=== PATIENT | male | born 1970 | race Caucasian/White ===

== ENCOUNTER 2017-09-16 09:07 | Observation (INO) ==
[2017-09-16] MEDS ORDERED: Aspirin 81 MG TAB.CHEW PO ONE (09:12)
--- NOTE | 2017-09-16 09:23 | Emergency Department Note ---
Disposition Clinical Impression: Chest pain Qualifiers: Chest pain type: unspecified Qualified Code(s): R07.9 - Chest pain, unspecified Disposition: Admitted As Inpatient Condition: Fair Referrals: NONE,PCP [Non-Partnered Physician] - Forms: ED Satisfaction Letter Time of Disposition: 11:57 Chest Pain HPI - General Chief Complaint: ED Chest Pain Stated Complaint: chest pain Time Seen by Provider: 09/16/17 09:11 Source: patient Mode of arrival: ambulatory Limitations: no limitations Vital Signs Reviewed: Yes Nursing Notes Reviewed: Yes - History of Present Illness HPI Narrative: 46-year-old who developed chest pain into his left shoulder at about 1 AM. Lasted for a couple hours since resolved. Patient does not know family history as he does not know his mother and father, does have a history of hypertension and probable high cholesterol. Nonsmoker no diabetes. Pt complaint: chest pain Onset (ago): hour(s) Duration: constant, now resolved Onset: during rest Pain Location: substernal, left chest Severity: moderate Severity scale (1-10): 1 Quality: tightness, aching Pain Radiation: LUE Improves with: rest Worsens with: nothing Associated symptoms: Reports: nausea - Related Data Home Medications Medication Instructions Recorded Confirmed Lisinopril [Zestril] 20 mg PO DAILY 09/16/17 09/16/17 Metoprolol Succinate [Toprol Xl] 25 - 50 mg PO DAILY 09/16/17 09/16/17 Allergies Allergy/AdvReac Type Severity Reaction Status Date / Time No Known Allergies Allergy Verified 09/16/17 12:29 All systems ED: reviewed and negative except as stated. Constitutional: Denies: fever, chills, weakness, weight change Eyes: Denies: eye pain, eye discharge, vision change ENT ED: Denies: ear pain, throat pain, dental pain, hearing loss, epistaxis, congestion, dysphagia Cardiovascular: Reports: chest pain. Denies: palpitations, dyspnea on exertion , edema, syncope Respiratory: Denies: cough, dyspnea, wheezes, hemoptysis, stridor Gastrointestinal: Denies: abdominal pain, nausea, vomiting, diarrhea, constipation, hematemesis, melena, hematochezia Genitourinary: Denies: urgency, dysuria, frequency, hematuria Musculoskeletal: Denies: back pain, neck pain, arthralgia, myalgia Integumentary: Denies: rash, abrasion, lesions Neurological: Denies: headache, weakness, numbness, paresthesias, confusion, abnormal gait, vertigo Psychiatric: Denies: anxiety, depression, suicidal thoughts, homicidal thoughts , auditory hallucinations, visual hallucinations Endocrine: Denies: fatigue Hematological/Lymphatic: Denies: easy bleeding, easy bruising Allergic/Immunologic: Denies: facial swelling, urticaria Chest Pain PMH - Past Medical History Medical history: Reports: hypertension Psychiatric history: Reports: no psych history - Social History Smoking Status: Never smoker Alcohol use: Reports: occasionally Drug use: Reports: none Physical Exam - General Limitations: no limitations General appearance: alert, in no apparent distress - Head Head exam: atraumatic, normocephalic, normal inspection - Eye Eye exam: Present: normal appearance, PERRL, EOMI - ENT ENT exam: normal exam, normal oropharynx, mucous membranes moist - Neck Neck exam: Present: normal inspection, full ROM, trachea midline - Chest Chest inspection: Present: normal inspection, symmetric chest wall rise - Respiratory Respiratory exam: Present: normal lung sounds bilaterally - Cardiovascular Cardiovascular exam: Present: regular rate, normal rhythm, normal heart sounds - Abdominal Exam Abdominal exam: Present: soft, Non-Tender. Absent: tenderness, distention, guarding, rebound, rigidity - Extremities Exam Extremities exam: Present: normal inspection, full ROM. Absent: tenderness, pedal edema - Expanded Lower Extremity Exam Neurovascular/Tendon exam: Absent: motor deficit, sensory deficit, tendon deficit Gait: observed and normal - Back Exam Back exam: Present: normal inspection, full ROM. Absent: tenderness - Neurological Exam Neurological exam: Present: alert, oriented X3 - Psychiatric Psychiatric exam: Present: normal affect, normal mood - Skin Skin exam: Present: warm, dry, intact, normal color Course - Reevaluation(s) Reevaluation #1: 46-year-old with risk factors comes in complaining of chest pain with no previous cardiac workup. Patient will be admitted for further evaluation and treatment. Time: 11:57 - Consultations Consultation #1: Discussed with Dr. Garrison, admit Time: 13:29 Vital Signs Temperature 98.3 F 09/16/17 09:09 Pulse Rate 91 09/16/17 09:09 Respiratory Rate 16 09/16/17 09:09 Blood Pressure 145/99 09/16/17 09:09 O2 Sat by Pulse Oximetry 97 09/16/17 09:09 Temperature 98.3 F 09/16/17 09:16 Pulse Rate 114 09/16/17 12:48 Respiratory Rate 16 09/16/17 12:48 Blood Pressure 139/98 09/16/17 12:48 O2 Sat by Pulse Oximetry 96 09/16/17 12:48 Oxygen Delivery Oxygen Delivery Room Air Chest Pain - Lab Data Lab results reviewed: Yes I reviewed the patient's lab results. Result diagrams: 09/16/17 09:30 09/16/17 09:30 Lab Results 09/16/17 09/16/17 09/16/17 Range/Units 09:30 09:30 09:30 WBC 7.4 (4.3-11.1) K/mcL RBC 5.46 (4.19-5.50) M/mcL Hgb 17.3 H (12.9-16.9) g/dL Hct 49.3 (37.5-50.1) % MCV 90.3 (83.0-100.0) fL MCH 31.7 (28.0-33.3) pg MCHC 35.1 (31.6-35.5) g/dL RDW 12.0 (11.5-14.5) % Plt Count 182 (140-400) K/mcL MPV 9.8 (9.4-12.4) fL Immature Gran % 0.5 (0-4) % Seg Neutrophils % 60.6 % Lymphocytes % 21.8 % Monocytes % 15.1 % Eosinophils % 1.2 % Basophils % 0.8 % Neutrophils # 4.5 (1.6-8.9) K/mcL Lymphocytes # 1.6 (0.6-4.6) K/mcL Monocytes # 1.1 (0.0-1.3) K/mcL Eosinophils # 0.1 (0.0-0.6) K/mcL Basophils # 0.1 (0.0-0.2) K/mcL PT 11.0 (9.4-12.1) Seconds INR 1.0 APTT 33.1 (26.0-36.0) Seconds Sodium 137 (136-145) mEq/L Potassium 4.1 (3.5-5.1) mEq/L Chloride 105 (98-107) mEq/L Carbon Dioxide 24 (23-29) mEq/L BUN 14 (6-20) mg/dL Creatinine 1.06 (0.70-1.30) mg/dL Est GFR ( Amer) > 60 (> 60) Est GFR (Non-Af Amer) > 60 (> 60) BUN/Creatinine Ratio 13 (6-26) Glucose 120 H (70-105) mg/dL Calculated Osmolality 286 (280-300) Calcium 9.7 (8.6-10.3) mg/dL ALT 79 H (7-52) Units/L Troponin I < 0.03 (< 0.04) ng/mL Triglycerides 73 (< 150) mg/dL Cholesterol 260 H (< 200) mg/dL LDL Cholesterol, Calc 184 H (0-99) mg/dL VLDL Cholesterol, Calc 15 (< 31) mg/dL HDL Cholesterol 61 H (40-59) mg/dL Cholesterol/HDL Ratio 4.3 (0-4.9) - Radiology Data Radiology results reviewed: Yes I reviewed the patient's radiology results. Chest X-Ray 09/16/17 09:12 IMPRESSION: Negative chest. D/ / Regina Escalante MD / Regina Escalante MD Interpreting Provider: Regina Escalante MD - EKG Data EKG attestation: Yes I reviewed and interpreted this EKG. EKG shows normal: sinus rhythm Rate: normal Rhythm: NSR Lena/QRS: normal Interpretation: no acute changes Heart Score - Score History: Moderately Suspicious EKG: Normal Age: 45-65 Risk Factors: 1-2 risk factors Troponin: Less than normal limit HEART Score Total: 3
[2017-09-16 09:49] LABS: Basophils # 0.1 K/mcL (0.0-0.2); Basophils % 0.8 %; Eosinophils # 0.1 K/mcL (0.0-0.6); Eosinophils % 1.2 %; Hematocrit 49.3 % (37.5-50.1); Hemoglobin 17.3 g/dL (12.9-16.9); Immature Granulocytes % 0.5 % (0-4); Lymphocytes # 1.6 K/mcL (0.6-4.6); Lymphocytes % 21.8 %; Mean Corpuscular HGB Conc 35.1 g/dL (31.6-35.5); Mean Corpuscular Hemoglobin 31.7 pg (28.0-33.3); Mean Corpuscular Volume 90.3 fL (83.0-100.0); Mean Platelet Volume 9.8 fL (9.4-12.4); Monocytes # 1.1 K/mcL (0.0-1.3); Monocytes % 15.1 %; Neutrophils # 4.5 K/mcL (1.6-8.9); Platelet Count 182 K/mcL (140-400); Red Blood Count 5.46 M/mcL (4.19-5.50); Segmented Neutrophils % 60.6 %
[2017-09-16 10:03] LABS: Activated Partial Thrombo Time 33.1 Seconds (26.0-36.0)
[2017-09-16 10:11] LABS: BUN/Creatinine Ratio 13 (6-26); Blood Urea Nitrogen 14 mg/dL (6-20); Calcium 9.7 mg/dL (8.6-10.3); Carbon Dioxide 24 mEq/L (23-29); Chloride 105 mEq/L (98-107); Glucose 120 mg/dL (70-105); Osmolality,Calculated 286 (280-300); Potassium 4.1 mEq/L (3.5-5.1); Sodium 137 mEq/L (136-145); eGFR For African Americans > 60 (> 60); eGFR For Non-African Americans > 60 (> 60)
[2017-09-16 10:44] LABS: Troponin I < 0.03 ng/mL (< 0.04)
[2017-09-16 12:54] LABS: Alanine Aminotransferase 79 Units/L (7-52); Chol/HDL Ratio 4.3 (0-4.9); Cholesterol 260 mg/dL (< 200); HDL Cholesterol 61 mg/dL (40-59); LDL Cholesterol,Calculated 184 mg/dL (0-99); Triglycerides 73 mg/dL (< 150)
[2017-09-16 13:57] LABS: Thyroid Stimulating Hormone 0.908 mcIU/mL (0.340-5.600)
[2017-09-16] MEDS ORDERED: Naloxone 0.4 MG/ML INJ IVP PRN (14:38)
[2017-09-16] MEDS ORDERED: Acetaminophen 325 MG TABLET PO PRN (14:38)
[2017-09-16] MEDS ORDERED: *HR* HYDROcodone/Acet 5/325 mg TABLET PO PRN (14:38)
[2017-09-16] MEDS ORDERED: Nitroglycerin 0.4 MG TAB.SUBL SL PRN (14:41)
--- NOTE | 2017-09-16 14:57 | Electrocardiograph Report ---
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
--- NOTE | 2017-09-16 14:58 | Electrocardiograph Report ---
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
[2017-09-16] MEDS: *HR* Heparin 5,000 UNIT/ML VIAL SQ SCH (21:04)
[2017-09-17] MEDS: *HR* Heparin 5,000 UNIT/ML VIAL SQ SCH ×2 (04:52→12:33)
[2017-09-17 06:27] LABS: Basophils # 0.1 K/mcL (0.0-0.2); Basophils % 0.9 %; Eosinophils # 0.2 K/mcL (0.0-0.6); Eosinophils % 3.5 %; Hematocrit 48.3 % (37.5-50.1); Hemoglobin 16.5 g/dL (12.9-16.9); Immature Granulocytes % 0.4 % (0-4); Lymphocytes # 1.5 K/mcL (0.6-4.6); Lymphocytes % 27.6 %; Mean Corpuscular HGB Conc 34.2 g/dL (31.6-35.5); Mean Corpuscular Hemoglobin 30.9 pg (28.0-33.3); Mean Corpuscular Volume 90.4 fL (83.0-100.0); Mean Platelet Volume 10.2 fL (9.4-12.4); Monocytes # 0.9 K/mcL (0.0-1.3); Monocytes % 16.4 %; Neutrophils # 2.7 K/mcL (1.6-8.9); Platelet Count 180 K/mcL (140-400); Red Blood Count 5.34 M/mcL (4.19-5.50); Red Cell Distribution Width 12.1 % (11.5-14.5); Segmented Neutrophils % 51.2 %
[2017-09-17 06:44] LABS: Alanine Aminotransferase 62 Units/L (7-52); Albumin 4.2 g/dL (3.5-5.7); Albumin/Globulin Ratio 1.6 (1.1-2.2); Alkaline Phosphatase 60 Units/L (34-104); Aspartate Amino Transferase 28 Units/L (13-39); BUN/Creatinine Ratio 17 (6-26); Bilirubin,Total 1.1 mg/dL (0.3-1.0); Blood Urea Nitrogen 16 mg/dL (6-20); Calcium 9.5 mg/dL (8.6-10.3); Carbon Dioxide 27 mEq/L (23-29); Chloride 104 mEq/L (98-107); Globulin 2.6 g/dL (2.4-3.5); Glucose 97 mg/dL (70-105); Osmolality,Calculated 287 (280-300); Potassium 3.7 mEq/L (3.5-5.1); Sodium 138 mEq/L (136-145); Total Protein 6.8 g/dL (6.4-8.9); eGFR For African Americans > 60 (> 60); eGFR For Non-African Americans > 60 (> 60)
[2017-09-17] MEDS ORDERED: Aspirin Enteric Coated 81 MG Tablet PO SCH (09:00)
[2017-09-17] MEDS ORDERED: Lisinopril 20 MG TABLET PO SCH (09:00)
[2017-09-17] MEDS ORDERED: Metoprolol XL (24 HR) Succ 25 MG TAB.ER.24H PO SCH (09:00)
[2017-09-17] MEDS ORDERED: *HR* Metoprolol 5 MG/5 ML VIAL IVP PRN (12:00)
--- NOTE | 2017-09-17 12:55 | Internal Med Progress Note ---
Date of Encounter: 09/17/17 Time of Encounter: 12:52 - Assessment and plan (1) Chest pain Current Visit: Yes Status: Acute Assessment and plan: Presented with chest pain, ACS rule out Chest pain described as sharp on her left breast radiating to left arm and worse with range of motion of left arm Symptoms resolved prior to arrival, no return of chest pain during this admission Troponins negative 3, stress test completed negative for ischemia Hyperlipidemia on lipid panel, lipid discharge with statin, would also benefit from 81 mg ASA daily TTE findings-EF 60%, indeterminate diastolic dysfunction, normal RV structure and function, no significant valvular dysfunction, no pulmonary hypertension. Levels are seen in the LA/LV after 5 cardiac cycle suggesting the presence of pulmonary shunting, no evidence for PFO Continue telemetry Continue aspirin and statin Qualifiers: Chest pain type: unspecified Qualified Code(s): R07.9 - Chest pain, unspecified (2) HTN (hypertension) Current Visit: Yes Status: Chronic Assessment and plan: History of HTN, BP slightly elevated this afternoon. However, patient did not receive morning dose of beta felicia. This is been given now, continue when necessary anti-HTN medications. Monitor closely Qualifiers: Hypertension type: essential hypertension Qualified Code(s): I10 - Essential (primary) hypertension (3) GERD (gastroesophageal reflux disease) Current Visit: Yes Status: Chronic Assessment and plan: Chronic, continue omeprazole Qualifiers: Esophagitis presence: esophagitis presence not specified Qualified Code(s) : K21.9 - Gastro-esophageal reflux disease without esophagitis (4) DVT prophylaxis Current Visit: Yes Status: Acute Assessment and plan: Continue SQ heparin - Time Spent With Patient Total time spent is greater than 50% in coordination of care (as documented) at patient's floor/unit and/or counseling patient: 25 - 35 minutes - Subjective Interval history: Patient seen and examined at bedside today. No acute changes overnight. Denies any shortness of breath or chest pain. - Constitutional Vitals: Temp Pulse Resp BP Pulse Ox 99.0 F 106 18 158/98 96 09/17/17 11:52 09/17/17 11:52 09/17/17 11:52 09/17/17 11:52 09/17/17 11:52 General appearance: Present: cooperative, A&O X 3, pleasant, no acute distress, answers questions appropriately - Head Head exam: Present: atraumatic, normocephalic - Eye Eye exam: Present: PERRL, conjuntiva pink, sclera anicteric Pupils: Present: PERRL - Neck Neck exam general surgery: Present: supple, trachea midline. Absent: lymphadenopathy - Respiratory Respiratory exam: Present: CTAB. Absent: accessory muscle use, rales, rhonchi, wheezes - Cardiovascular Cardiovascular exam: Present: RRR, +S1, +S2. Absent: diastolic murmur, gallop, rubs, systolic murmur - GI/Abdominal GI/Abdominal exam: Present: normal bowel sounds, soft, no peritoneal signs. Absent: distended, tenderness - Extremities Exam Extremities exam: Present: warm, radial pulses palpable and symmetrical. Absent : calf tenderness, cyanotic, pedal edema - Neurological Exam Neurological exam: Present: CN II-XII intact, oriented X3, no focal deficits. Absent: pronater drift, facial droop, speech deficit - Skin Skin exam: Present: dry, intact Internal Medicine: Result - Labs CBC & Chem 7: 09/17/17 04:24 09/17/17 04:24 Labs: Short CBC 09/17/17 Range/Units 04:24 WBC 5.4 (4.3-11.1) K/mcL Hgb 16.5 (12.9-16.9) g/dL Hct 48.3 (37.5-50.1) % Plt Count 180 (140-400) K/mcL Neutrophils # 2.7 (1.6-8.9) K/mcL BMP 09/17/17 04:24 Sodium 138 Potassium 3.7 Chloride 104 Carbon Dioxide 27 BUN 16 Creatinine 0.94 Glucose 97 Calcium 9.5 Cardiac Enzymes 09/16/17 09/16/17 Range/Units 15:41 21:23 Troponin I < 0.03 < 0.03 (< 0.04) ng/mL Liver Function 09/17/17 Range/Units 04:24 Total Bilirubin 1.1 H (0.3-1.0) mg/dL AST 28 (13-39) Units/L ALT 62 H (7-52) Units/L Alkaline Phosphatase 60 (34-104) Units/L Albumin 4.2 (3.5-5.7) g/dL - ABG Interpretation ABG results: PT/INR, D-dimer PT 11.0 Seconds (9.4-12.1) 09/16/17 09:30 - Impressions Impressions Echocardiogram 09/16/17 14:38 Impressions: LVEF 60%. Indeterminate diastolic function. Normal right ventricular structure and function. No significant valvular dysfunction. No pulmonary hypertension. With saline contrast injection, bubbles are seen in the LA/LV after 5 cardiac cycles suggesting the presence of pulmonary shunting. No evidence for PFO. Left Ventricular Wall Motion: Rest Echo Findings All wall segments showed normal motion. Findings: Study Quality * Technically adequate exam. ECG Findings * Normal sinus rhythm. Left Ventricle * LVEF 60%. * Normal LV chamber size, wall thickness and function. * Indeterminate diastolic function. Right Ventricle * Normal right ventricular structure and function. Left Atrium * Normal left atrial size. Right Atrium * Normal right atrial size. Mitral Valve * Normal mitral valve structure. * No mitral stenosis. * No mitral regurgitation. Aortic Valve * No aortic regurgitation. * Trileaflet aortic valve. * No aortic stenosis. Tricuspid Valve * Tricuspid valve not well visualized. * Trace tricuspid regurgitation. Pulmonic Valve * Pulmonic valve is not well visualized. * No pulmonic stenosis. * No pulmonic regurgitation. Pulmonary Artery * Pulmonary artery not well visualized. Aorta * Normally sized aortic root. Pericardium * There is no pericardial effusion present. Interatrial Septum * No evidence of PFO by color Doppler. * With saline contrast injection, bubbles are seen in the LA/LV after 5 cardiac cycles suggesting the presence of pulmonary shunting. No evidence for PFO. IVC * The IVC is not well evaluated. Consult Discharge Plan - Plan Referrals: Jayson Gant MD [Primary Care Provider] - 09/22/17 8:45 am
--- NOTE | 2017-09-17 14:06 | Discharge Summary ---
- NOTES TO OUTPATIENT PROVIDER Notes to Outpatient Provider: Benign findings of pulmonary shunting on echo, no immediate f/u needed. Instructed to f/u with PCP in 1 week of d/c. No pending studies. Patient discharged on simvastatin and ASA, patient does not wish to start simvastatin until disucssion with PCP. Orders not resulted at time of discharge: Pending orders 09/17/17 07:01 NM genevieve perf SPECT multi [NM] Routine 09/18/17 04:00 Complete Blood Count [HEME] AM 0400 Comprehensive Metabolic Panel AM 0400 09/19/17 04:00 Complete Blood Count [HEME] AM 0400 Comprehensive Metabolic Panel AM 040 Date of Encounter: 09/17/17 Time of Encounter: 14:03 - Discharge Diagnosis (1) Chest pain Priority: Primary Status: Acute Assessment and Plan: Presented with chest pain, ACS rule out Chest pain described as sharp on her left breast radiating to left arm and worse with range of motion of left arm Symptoms resolved prior to arrival, no return of chest pain during this admission Troponins negative 3, stress test completed negative for ischemia Hyperlipidemia on lipid panel, discharge with statin, D/C with 81 mg ASA daily TTE findings-EF 60%, indeterminate diastolic dysfunction, normal RV structure and function, no significant valvular dysfunction, no pulmonary hypertension. Levels are seen in the LA/LV after 5 cardiac cycle suggesting the presence of benign pulmonary shunting, no evidence for PFO Uneventful hospital course, instructed to f/u with PCP in 1-week of d/c. Also, instructed to return to the ED should CP return. Discussed need for statin and ASA. Verbalized understanding, denies any further questions Qualifiers: Chest pain type: unspecified Qualified Code(s): R07.9 - Chest pain, unspecified (2) HTN (hypertension) Priority: Secondary Status: Chronic Assessment and Plan: History of HTN, BP slightly elevated this afternoon. However, patient did not receive morning dose of beta felicia. This is been given now, continue when necessary anti-HTN medications. Monitor closely Qualifiers: Hypertension type: essential hypertension Qualified Code(s): I10 - Essential (primary) hypertension (3) GERD (gastroesophageal reflux disease) Priority: Secondary Status: Chronic Assessment and Plan: Chronic, continue omeprazole Qualifiers: Esophagitis presence: esophagitis presence not specified Qualified Code(s) : K21.9 - Gastro-esophageal reflux disease without esophagitis Hospital course: Mr. Teague is a 46 year old male Please see assessment and plan for hospital course Discharge discussed with: patient, family, nurse - Time Spent with Patient Total time spent providing and/or coordinating discharge services: Less than 30 minutes - Discharge Medications Prescriptions: Aspirin 81 mg PO DAILY 30 Days #30 tab.chew Simvastatin [Zocor] 10 mg PO HS 30 Days #30 tablet Home Medications: Lisinopril [Zestril] 20 mg PO DAILY 09/16/17 [History] Metoprolol Succinate [Toprol Xl] 25 - 50 mg PO DAILY 09/16/17 [History] Aspirin 81 mg PO DAILY 30 Days #30 tab.chew 09/17/17 [Rx] Simvastatin [Zocor] 10 mg PO HS 30 Days #30 tablet 09/17/17 [Rx] Allergies/Adverse Reactions: 3 Allergy/AdvReac Type Severity Reaction Status Date / Time No Known Allergies Allergy Verified 09/16/17 12:29 Date of admission: 09/16/17 13:49 Primary care physician: Jayson Gant MD Discharging clinician: Cade Tapia Anticipated date of discharge: 09/17/17 - Constitutional Vitals: Temp Pulse Resp BP Pulse Ox 99.0 F 114 20 172/112 98 09/17/17 13:25 09/17/17 13:25 09/17/17 13:25 09/17/17 13:25 09/17/17 13:25 General appearance: Present: cooperative, A&O X 3, pleasant, no acute distress, answers questions appropriately - Head Head exam: Present: atraumatic, normocephalic - Eye Eye exam: Present: EOMI, PERRL, conjuntiva pink, sclera anicteric Pupils: Present: PERRL - Neck Neck exam general surgery: Present: supple, trachea midline. Absent: lymphadenopathy - Respiratory Respiratory exam: Present: CTAB. Absent: accessory muscle use, rales, rhonchi, wheezes - Cardiovascular Cardiovascular exam: Present: RRR, +S1, +S2. Absent: diastolic murmur, gallop, rubs, systolic murmur - GI/Abdominal GI/Abdominal exam: Present: normal bowel sounds, soft, no peritoneal signs. Absent: distended, tenderness - Extremities Exam Extremities exam: Present: warm, radial pulses palpable and symmetrical. Absent : calf tenderness, cyanotic, pedal edema - Neurological Exam Neurological exam: Present: CN II-XII intact, oriented X3, no focal deficits. Absent: pronater drift, facial droop, speech deficit - Skin Skin exam: Present: dry, intact - Patient Status Disposition: Home, Self-Care Condition: Fair Overall status at discharge: patient is back to baseline - Discharge Instructions Instructions: Aspirin (By mouth), Simvastatin (By mouth), Chest Pain (DC) Follow Up With: Jayson Gant MD [Primary Care Provider] - 09/22/17 8:45 am - Diet and Activity Activity: increase activity as tolerated, resume usual activities as tolerated Diet: diabetic diet, low fat, low cholesterol
[2017-09-17 15:22] VITALS: BP 158/99
== END 2017-09-17 16:44 | disposition home or self-care (01) ==
LOC: EMEROO 09:07 → 3BNU 09:07
PROVIDERS: ADMIT Hospitalist; ATTEND Hospitalist